=== PATIENT | male | born 2000 | race African-American/Black ===

== ENCOUNTER 2020-09-28 13:52 | Emergency (ER) | payer OTHER ==
[~2020-09-28] VITALS: Ht 185.4 cm; Wt 63.2 kg
[2020-09-28 13:59] VITALS: BP 108/68; TEMP 98.5
[2020-09-28 14:41] VITALS: PULSE 90
== END 2020-09-28 14:42 | disposition home or self-care (01) ==
LOC: COL.ER 13:52
DX: R20.2 Paresthesia of skin (principal); M79.675 Pain in left toe(s); M79.674 Pain in right toe(s); M79.646 Pain in unspecified finger(s); X31.XXXA Exposure to excessive natural cold, initial encounter

== ENCOUNTER 2021-01-24 20:06 | Emergency (ER) | payer MEDICAID ==
[~2021-01-24] VITALS: Ht 182.9 cm; Wt 61.4 kg
[2021-01-24 20:23] VITALS: TEMP 98.8
[2021-01-24] MEDS ORDERED: TYLENOL 325MG325 MG PO (22:27)
[2021-01-24] MEDS ORDERED: NAPROSYN 2250 MG/TAB PO (22:27)
[2021-01-24] MEDS ORDERED: FLEXERIL 1010 MG/TAB PO (22:27)
[2021-01-24] MEDS ORDERED: LIDODERM 5% PATC1 EA TP (22:43)
[2021-01-24 22:48] VITALS: BP 111/73; PULSE 88
== END 2021-01-24 22:48 | disposition home or self-care (01) ==
LOC: COL.ER 20:06
DX: S39.012A Strain of muscle, fascia and tendon of lower back, initial encounter (principal); F17.290 Nicotine dependence, other tobacco product, uncomplicated; X50.0XXA Overexertion from strenuous movement or load, initial encounter; Y93.F2 Activity, caregiving, lifting; Y92.512 Supermarket, store or market as the place of occurrence of the external cause; Y99.0 Civilian activity done for income or pay
CPT/HCPCS: J1885

== ENCOUNTER 2021-01-25 22:02 | Emergency (ER) | payer SELFPAY ==
[~2021-01-25 22:02] MED LIST: FLEXERIL 1010 MG/TAB PO; LIDODERM 5% PATC1 EA TP; NAPROSYN 2250 MG/TAB PO; TYLENOL 325MG325 MG PO
== END 2021-01-25 23:00 | disposition left against medical advice (07) ==
LOC: COL.ER 22:02
DX: Z00.00 Encounter for general adult medical examination without abnormal findings (principal)

== ENCOUNTER 2021-03-14 20:16 | Emergency (ER) | payer MEDICAID ==
[~2021-03-14] VITALS: Ht 185.4 cm; Wt 61.4 kg
[2021-03-14 20:24] VITALS: BP 103/70; PULSE 95; TEMP 98.7
== END 2021-03-14 23:36 | disposition home or self-care (01) ==
LOC: COL.ER 20:16
DX: S90.31XA Contusion of right foot, initial encounter (principal); V02.90XA Pedestrian on foot injured in collision with two- or three-wheeled motor vehicle, unspecified whether traffic or nontraffic accident, initial encounter

== ENCOUNTER 2021-03-24 12:44 | Emergency (ER) | payer MEDICAID ==
[~2021-03-24] VITALS: Ht 185.4 cm; Wt 63.6 kg
[2021-03-24 13:48] VITALS: TEMP 98.6
[2021-03-24 15:15] VITALS: BP 110/73; PULSE 64
== END 2021-03-24 15:15 | disposition home or self-care (01) ==
LOC: COL.ER 12:44
DX: M79.645 Pain in left finger(s) (principal); W23.1XXA Caught, crushed, jammed, or pinched between stationary objects, initial encounter; Y99.0 Civilian activity done for income or pay